=== PATIENT | male | born 1975 | race Caucasian/White ===

== ENCOUNTER 2018-01-15 09:47 | Emergency (ER) | payer OTHER ==
[~2018-01-15] VITALS: Ht 175.3 cm; Wt 71.2 kg
[~2018-01-15 09:47] MED LIST: CLEOCIN HCL300 MG PO; COLACE100 MG PO; LAC PO; NORCO1 TA2 PO; [UNRECOGNIZED DRUG - REMARK]
[2018-01-15 09:54] VITALS: Ht 175.3 cm; Wt 71.2 kg
[2018-01-15 11:05] VITALS: BP 133/89
== END 2018-01-15 11:05 | disposition home or self-care (01) ==
LOC: ED 09:47
DX: F15.10 Other stimulant abuse, uncomplicated (principal); M79.632 Pain in left forearm; F17.210 Nicotine dependence, cigarettes, uncomplicated

== ENCOUNTER 2018-05-15 11:16 | Emergency (ER) | payer OTHER ==
[~2018-05-15] VITALS: Ht 177.8 cm; Wt 70.5 kg
[2018-05-15 11:21] VITALS: Ht 177.8 cm; Wt 70.5 kg
[2018-05-15 11:54] LABS: BASOPHIL % 0.4 % (0-2); PLATELET COUNT 313 x10^3mcL (130-400); RED CELL DISTRIBUTION WIDTH 13.4 % (11.5-14.5)
[2018-05-15 12:02] LABS: CALCIUM 9.6 mg/dL (8.5-10.1); CARBON DIOXIDE 26.5 mmol/L (21-32); CHLORIDE SERUM 98 mmol/L (98-107); CREATININE SERUM 0.9 mg/dL (0.7-1.3); GFR1 > 60 mL/min; GLUCOSE SERUM 114 mg/dL (74-106); POTASSIUM SERUM 3.5 mmol/L (3.5-5.1); SODIUM SERUM 134 mmol/L (136-145)
[2018-05-15 12:07] LABS: ALBUMIN 4.2 g/dL (3.4-5.0); ALKALINE PHOSPHATASE 58 U/L (46-116); ALT/SGPT 31 U/L (16-63); AMYLASE 31 U/L (25-115); AST/SGOT 73 U/L (15-37); BILIRUBIN TOTAL 1.6 mg/dL (0.20-1.00); LIPASE 50 IU/L (73-393)
[2018-05-15 12:10] LABS: TOTAL PROTEIN, SERUM 8.6 g/dL (6.4-8.2)
[2018-05-15 14:09] VITALS: BP 130/91
== END 2018-05-15 14:09 | disposition home or self-care (01) ==
LOC: ED 11:16
PROVIDERS: Emergency Medicine
DX: R10.33 Periumbilical pain (principal); F17.210 Nicotine dependence, cigarettes, uncomplicated; Z88.0 Allergy status to penicillin

== ENCOUNTER 2018-12-11 13:18 | Inpatient (IN) | payer OTHER ==
[~2018-12-11] VITALS: Ht 175.3 cm; Wt 69.4 kg
[2018-12-11 13:25] VITALS: Ht 175.3 cm; Wt 69.4 kg
--- NOTE | 2018-12-11 13:42 | NUR ---
PT HERE W/ EPIGASTRIC PAIN S/P "PARTYING LAST NIGHT." PT ADMITS TO BOTH DRINKING & USING METH. PREVIOUS HX OF EPIGASTRIC PAIN S/P USING METH "BUT NEVER THIS BAD." PT IS ANXIOUS, PACING, CRYING. STATES LAST EPISODE OF PAIN WAS "A LONG TIME AGO" BUT VISITOR STATES HE GETS THIS FREQUENTLY. STATES WAS CLEAN FOR AWHILE "I AM WITH THE LORD" BUT PARTIED LAST NIGHT. PT COVERED IN [place]. PT KEEPS PLACING HIS HANDS OVER HIS ABDOMEN DESPITE BEING TOLD BY MD TO KEEP HIS HANDS @ HIS SIDES DURING EXAM. PT DENIES N/V, PT STATES HE HASN'T EATEN & "CAN'T SLEEP." NO RECENT BM "BUT THERE'S NOTHING IN ME; I HAVEN'T EATEN." MSE BY DR. KUMAR.
--- NOTE | 2018-12-11 13:53 | NUR ---
PT GIVEN URINAL & INSTRUCTED ON NEED FOR URINE SPECIMEN.
--- NOTE | 2018-12-11 14:04 | NUR ---
MEDICATED ORDERED. PLEASE SEE EMR.
[2018-12-11 14:09] LABS: BASOPHIL % 0.6 % (0-2); PLATELET COUNT 329 x10^3mcL (130-400); RED CELL DISTRIBUTION WIDTH 13.8 % (11.5-14.5)
[2018-12-11 14:32] LABS: ALBUMIN 4.6 g/dL (3.4-5.0); ALKALINE PHOSPHATASE 67 U/L (46-116); ALT/SGPT 47 U/L (16-63); AST/SGOT 56 U/L (15-37); BILIRUBIN TOTAL 1.94 mg/dL (0.20-1.00); CALCIUM 10.4 mg/dL (8.5-10.1); CARBON DIOXIDE 25.2 mmol/L (21-32); CHLORIDE SERUM 98 mmol/L (98-107); GFR1 > 60 mL/min; GLUCOSE SERUM 123 mg/dL (74-106); LIPASE 32 IU/L (73-393); POTASSIUM SERUM 3.6 mmol/L (3.5-5.1); SODIUM SERUM 136 mmol/L (136-145); TOTAL PROTEIN, SERUM 8.9 g/dL (6.4-8.2)
--- NOTE | 2018-12-11 15:10 | NUR ---
ECONOMIC DEVELOPMENT MANAGER SUNDEEP CHU HERE TO SEE PT.
[2018-12-11 15:41] LABS: MAGNESIUM 2.3 mg/dL (1.8-2.4); PHOSPHOROUS 3.9 mg/dL (2.5-4.9)
[2018-12-11 15:43] LABS: CHOLESTEROL/HDL RATIO 1.9
--- NOTE | 2018-12-11 15:43 | NUR ---
REPORT GIVEN TO SHRUTHI LEE TO ASSUME CARE OF PT.
--- NOTE | 2018-12-11 15:44 | NUR ---
RECEIVED REPORT FROM KAMILA HAWKINS IN ED. AWAITING PATIENT ARRIVAL TO FLOOR.
[2018-12-11 15:58] LABS: AMPHETAMINE QUAL UR POSITIVE (See below)
--- NOTE | 2018-12-11 16:10 | NUR ---
RECEIVED PT [employer]IA [employer] FROM E/D [facility] [employer], ACCOMPANIED BY RN, TRANSPORTER, AND PT'S PARENTS. PT A/A/O X 4, CALM, COOPERATIVE. AMBULATORY, NO GAIT OR BALANCE IMPAIRMENT NOTED WALKING FROM [facility] TO BED. ON TELE # 8, HR 70, SR W/ ELEVATED T-WAVES, DENIES CHEST PAIN OR DISCOMFORT AT THIS TIME. NO ACUTE RESPIRATORY DISTRESS NOTED. ABD SOFT, ROUND, NON-TENDER, NORMOACTIVE BOWEL SOUNDS X 4 QUADS, LAST BM 12/11/18, FORMED. IV SITE RAC 20G, CDI. ORIENTED PT AND FAMILY MEMBERS TO ROOM, BED CONTROLS, CALL LIGHT SYSTEM. SIDE RAILS UP X 2, BED IN LOW POSITION. WILL ENDORSE TO SHRUTHI LEE.
--- NOTE | 2018-12-11 16:14 | NUR ---
PT TRANSFERED VIA GURNEY ACCOMPANIED BY NURSE AND EMT. CLINICAL PROJECT MANAGER ATTACHED. VSS. RESPS E/U. NO S/S OF DISTRESS NOTED.
[2018-12-11 16:27] VITALS: BP 115/84
--- NOTE | 2018-12-11 16:53 | NUR ---
IN TO SEE PATIENT TO BEGIN FLUID ADMINISTRATION.
--- NOTE | 2018-12-11 19:00 | NUR ---
REPORT GIVEN TO EVE HAWKINS. PT RESTING COMFORTABLY IN BED. ALL NEEDS MET. NO C/O CHEST PAIN OR SOB. IV TO RAC IS PATENT AND INFUSING NS @ 75 ML/HR. NO REDNESS OR PAIN. ALL QUESTIONS AND CONCERNS ADDRESSED.
[2018-12-11 21:14] VITALS: BP 104/68
--- NOTE | 2018-12-12 00:02 | NUR ---
PT IS RESTING IN BED WITH EYES CLOSED AT THIS TIME. NO ACUTE DISTRESS NOTED. PT HAS BEEN CALM AND COOPERATIVE WITH CARE. SAFETY AND COMFORT MEASURES MAINTAINED, BED IN LOWEST POSITION, CALL LIGHT WITHIN REACH.
--- NOTE | 2018-12-12 03:59 | NUR ---
PT IS RESTING IN BED WITH EYES CLOSED, NO ACUTE DISTRESSS NOTED AT THIS TIME. SAFETY AND COMFORT MEASURES MAINTAINED, PT HAS BEEN CALM AND COOPERATIVE WITH CARE, IV INFUSING AND INTACT. CALL LIGHT WITHIN REACH.
--- NOTE | 2018-12-12 05:06 | NUR ---
PT HAS SLEPT IN LONG INTERVALS THROUGHOUT THE SHIFT. PT HAS BEEN ALERT AND ORIENTED X3, CALM AND COOPERATIVE WITH CARE. NO ACUTE DISTRESS NOTED. NO COMPLAINT OF PAIN AT THIS TIME. SAFETY AND COMFORT MEASURES MAINTAINED, BED IN LOWEST POSITION, CALL LIGHT WTIHIN REACH. WILL ENDORSE CONTINUITY OF CARE TO THE ONCOMING RN.
[2018-12-12 05:47] VITALS: BP 92/57
[2018-12-12 06:47] LABS: BASOPHIL % 0.7 % (0-2); PLATELET COUNT 275 x10^3mcL (130-400); RED CELL DISTRIBUTION WIDTH 13.7 % (11.5-14.5)
--- NOTE | 2018-12-12 07:31 | NUR ---
REPORT RECEIVED. PATIENT AWAKE. DENIES ANY DISCOMFORT. INSTRUCTED TO CALL RN FOR ANY NEED. CALL [place] WITHIN REACH.
[2018-12-12 09:18] VITALS: BP 98/57
--- NOTE | 2018-12-12 10:57 | NUR ---
VERBALIZED READINESS TO BE DISCHARGED TODAY.
[2018-12-12 13:09] VITALS: BP 110/77
[2018-12-12 15:24] VITALS: BP 110/77
--- NOTE | 2018-12-12 16:23 | NUR ---
DISCHARGE TEACHINGS RE- ACTIVITY , MD FOLLOW UP, WHEN TO CALL MD/GO TO ER/ CALL 911. TELEMETRY AND HEPLOCK REMOVED.ESCORTED OFF THE FLOOR TO QUILLER TENDER.
== END 2018-12-12 16:15 | disposition home or self-care (01) | DRG 190 ==
LOC: ED 13:18 → DU 15:11 → MU 15:11 → DU 16:10 → MU 12-12 13:54
PROVIDERS: Emergency Medicine; ADMIT General Practice
DX: I21.4 Non-ST elevation (NSTEMI) myocardial infarction (principal); F10.10 Alcohol abuse, uncomplicated; F15.10 Other stimulant abuse, uncomplicated; F12.10 Cannabis abuse, uncomplicated; F11.10 Opioid abuse, uncomplicated; R74.0 Nonspecific elevation of levels of transaminase and lactic acid dehydrogenase [LDH]; Y90.0 Blood alcohol level of less than 20 mg/100 ml; F17.210 Nicotine dependence, cigarettes, uncomplicated; Z68.22 Body mass index [BMI] 22.0-22.9, adult
CPT/HCPCS: 83880; G0378; J1885; J2060; J2405; J7030; Q0092